=== PATIENT | male | born 1960 | race Caucasian/White ===

== ENCOUNTER 2023-12-08 16:22 | Outpatient (RCR) | payer OTHER, SELFPAY | END 2023-12-08 23:59 | disposition home or self-care (01) | LOC: RST 16:22 | PROVIDERS: ATTENDING PHYSICIAN Physical Medicine & Rehabilitation | DX: I69.320 Aphasia following cerebral infarction (principal); I69.390 Apraxia following cerebral infarction; I69.328 Other speech and language deficits following cerebral infarction; I69.398 Other sequelae of cerebral infarction; I67.9 Cerebrovascular disease, unspecified; R41.4 Neurologic neglect syndrome | CPT/HCPCS: 92507; 97110; 97112; 97116; 97530; 97535 ==

== ENCOUNTER 2024-01-12 14:06 | Outpatient (RCR) | payer OTHER, SELFPAY | END 2024-01-12 23:59 | disposition home or self-care (01) | LOC: RST 14:06 | PROVIDERS: ATTENDING PHYSICIAN Physical Medicine & Rehabilitation | DX: I69.320 Aphasia following cerebral infarction (principal); I69.390 Apraxia following cerebral infarction; I69.328 Other speech and language deficits following cerebral infarction; R41.4 Neurologic neglect syndrome; I69.398 Other sequelae of cerebral infarction; Z73.6 Limitation of activities due to disability | CPT/HCPCS: 92507; 97010; 97110; 97112; 97140; 97530; 97535 ==

== ENCOUNTER 2024-02-06 14:43 | Outpatient (RCR) | payer OTHER, SELFPAY | END 2024-02-06 23:59 | disposition home or self-care (01) | LOC: RST 14:43 | PROVIDERS: ATTENDING PHYSICIAN Physical Medicine & Rehabilitation | DX: I63.9 Cerebral infarction, unspecified (principal); I69.320 Aphasia following cerebral infarction; I69.390 Apraxia following cerebral infarction; I69.328 Other speech and language deficits following cerebral infarction | CPT/HCPCS: 92507; 97110; 97112; 97530; 97535 ==

== ENCOUNTER 2024-03-12 15:14 | Outpatient (RCR) | payer OTHER, SELFPAY | END 2024-03-12 23:59 | disposition home or self-care (01) | LOC: RST 15:14 | PROVIDERS: ATTENDING PHYSICIAN Physical Medicine & Rehabilitation | DX: I69.320 Aphasia following cerebral infarction (principal); I69.390 Apraxia following cerebral infarction; I69.328 Other speech and language deficits following cerebral infarction; Z73.6 Limitation of activities due to disability | CPT/HCPCS: 92507; 97110; 97112; 97530; 97535 ==

== ENCOUNTER 2024-04-11 15:50 | Outpatient (RCR) | payer OTHER, SELFPAY | END 2024-04-11 23:59 | disposition home or self-care (01) | LOC: RST 15:50 | PROVIDERS: ATTENDING PHYSICIAN Physical Medicine & Rehabilitation | DX: I63.512 Cerebral infarction due to unspecified occlusion or stenosis of left middle cerebral artery (principal); I69.328 Other speech and language deficits following cerebral infarction; I69.390 Apraxia following cerebral infarction; R41.4 Neurologic neglect syndrome; Z73.6 Limitation of activities due to disability | CPT/HCPCS: 92507; 97110; 97112; 97116; 97530; 97535 ==

== ENCOUNTER 2024-05-02 15:49 | Outpatient (RCR) | payer OTHER, SELFPAY | END 2024-05-02 23:59 | disposition home or self-care (01) | LOC: RST 15:49 | PROVIDERS: ATTENDING PHYSICIAN Physical Medicine & Rehabilitation | DX: I69.398 Other sequelae of cerebral infarction (principal); I69.320 Aphasia following cerebral infarction; I69.328 Other speech and language deficits following cerebral infarction; I69.351 Hemiplegia and hemiparesis following cerebral infarction affecting right dominant side; I69.319 Unspecified symptoms and signs involving cognitive functions following cerebral infarction; I69.390 Apraxia following cerebral infarction; Z73.6 Limitation of activities due to disability | CPT/HCPCS: 92507 ==

== ENCOUNTER 2024-06-01 16:53 | Emergency (ER) | payer OTHER, SELFPAY ==
[2024-06-01 17:00] VITALS: BP 162/95
[2024-06-01 17:24] LABS: % Basophils 0.7 % (0-2); % Eosinophils 1.7 % (0-6); % Immature Granulocytes 0.3 % (0-0.5); % Lymphocytes 17.9 % (20.5-51.1); % Monocytes 9.3 % (1.7-9.3); % Neutrophils 70.1 % (42.2-75.2); Absolute Basophils 0.1 10^3/uL (0-0.2); Absolute Eosinophils 0.1 10^3/uL (0-0.7); Absolute Lymphocytes 1.3 10^3/uL (1.2-3.4); Absolute Monocytes 0.7 10^3/uL (0.1-0.6); Mean Corp Hgb Conc. 35.9 g/dL (33.0-37.0); Mean Corpuscular Hgb 30.7 pg (27.0-31.0); Mean Corpuscular Volume 85.5 fL (80.0-94.0); Nucleated Red Blood Cells % 0 % (-); Platelet Count 289 10^3/uL (130-400); Red Blood Cell Count 4.56 10^6/uL (4.70-6.10); Red Cell Dist. Width 12.3 % (11.5-14.5); White Blood Cell Count 7.2 10^3/uL (4.8-10.8)
[2024-06-01 17:34] LABS: ALT (SGPT) 32 U/L (0-50); AST (SGOT) 33 U/L (17-59); Albumin 4.8 g/dl (3.5-5.0); Alkaline Phosphatase 77 U/L (38-126); Blood Urea Nitrogen 15 mg/dl (9-20); Carbon Dioxide 24 mmol/L (22-30); Chloride 105 mmol/L (98-107); Glucose 113 mg/dl (70-99); Potassium 4.3 mmol/L (3.5-5.1); Sodium 139 mmol/L (135-145); Total Bilirubin 0.4 mg/dl (0.2-1.3); Total Protein 7.3 g/dl (6.3-8.2); eGFR > 60.00
[2024-06-01 17:36] LABS: INR 2.23; PT 24.5 Sec (11.4-14.6)
[2024-06-01 17:37] LABS: APTT 34.3 Sec (23.4-35.0)
[2024-06-01 17:46] LABS: Troponin I < 0.012 ng/ml
--- NOTE | 2024-06-01 18:07 | ED.GENMED ---
History of Present Illness
General
Chief Complaint: Fatigue
Source: patient and spouse
Time Seen by Provider: 06/01/24 17:45
History of Present Illness
History of Present Illness:
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 Patient has been feeling fatigued over the past several weeks. His fatigue is
worse today. He also reports shortness of breath primarily with exertion. His is concerned because his INR has been subtherapeutic the past 2 lab draws. INR was reportedly 2 four days ago. He denies any new neurologic symptoms and states his
right sided weakness and speech difficulty is currently at baseline. He admits that he has not been sleeping well recently and wakes up every few hours throughout the night. He denies any fevers, chest pain, vomiting, or PND.
Past History
Past History
ED Past Medical History: HTN and Hypercholesterolemia
ED Past Surgical History: Cardiac and Orthopedic
Social History
Tobacco: Former smoker
Alcohol: Occasional
Living: with family
Family History
Family History: Negative Diabetes, Hypertension, Early CAD, Asthma or Cancer
Phy Exam
General Physical Exam
General Presentation: well appearing and no apparent distress
General age: appears stated age
General Skin: warm and dry
General Habitus: normal
General Mental: alert
Cardiovascular Exam
Cardiovascular Exam: regular rate/rhythm
Pulmonary Exam
Pulmonary Exam: lungs clear, no respiratory distress, no crackles and no wheezing
Neurological Exam
Neurological Exam: alert and other (4/5 strength on RUE/RLE. Negative drift x 4. Patient with mild aphasia/word finding difficulty which is baseline per patient and . CN 2-12 otherwise intact. Normal finger to nose and heel to [place] bilaterally. )
Skin Exam
Skin Exam: normal color and warm/dry
Psychiatric Exam
Psychiatric Exam: normal mood/affect
Course
Orders/Labs/Results
Orders:
Orders
06/01/24 17:03
Electrocardiogram (*1) Urgent
Reason for Study: Other
Other Reason for Exam: Possible Stroke
06/01/24 17:04
EKG- Treatment ONCE
06/01/24 17:16
Complete Blood Count/With Diff Urgent
Comprehensive Metabolic Panel Urgent
PTT Urgent
Prothrombin Time Urgent
TSH Reflex To Free T4 Urgent
Troponin I Urgent
06/01/24 18:05
CR Chest - 2 Views Urgent
Comment:
Reason For Exam: SOB
06/01/24 18:11
Add On- LAB Urgent
Tests Added?: TSH reflex to t4
06/01/24 18:16
COVID-19 Antigen Urgent
Source: Nasal Swab
06/01/24 18:27
Urinalysis Reflex To Culture Urgent
Date Specimen was Collected: 06/01/24
Time Specimen was Collected: 18:24
Abnormal Lab Results
06/01/24
17:16
RBC 4.56 L 10^6/uL
(4.70-6.10)
Absolute Monos (auto) 0.7 H 10^3/uL
(0.1-0.6)
Lymphocytes % 17.9 L %
(20.5-51.1)
PT 24.5 H Sec
(11.4-14.6)
Glucose 113 H mg/dl
(70-99)
06/01/24 17:16
06/01/24 17:16
Vital Signs
Initial and Last Documented VS:
Initial Vital Signs
Temp Pulse Resp BP Pulse Ox
98.3 F 77 16 162/95 98
06/01/24 17:00 06/01/24 17:00 06/01/24 17:00 06/01/24 17:00 06/01/24 17:00
Last Documented Vital Signs
Temp Pulse Resp BP Pulse Ox
98.3 F 77 16 136/90 98
06/01/24 17:00 06/01/24 17:00 06/01/24 17:00 06/01/24 19:52 06/01/24 17:00
MDM/Problems Addressed
Differential Diagnosis Includes:
64yoM here with fatigue x several weeks. Also having external dyspnea. Hx of prior CVA with residual R sided hemiparesis/aphasia. No new neurologic symptoms. He is afebrile and hemodynamically stable. He is well appearing in no distress. Exam is
reassuring other than his baseline neuro deficits. Differential diagnosis includes but is not limited to: infection, dehydration, CANDELARIA, thyroid dysfunction, arrhythmia
Initial ED plan: Check cardiac labs, INR, TSH, UA, COVID swab, EKG, and CXR.
*EKG
Interpreted by ED Provider?: Yes
EKG Intrepretation Date: 06/01/24
EKG Intrepretation Time: 18:19
Heart Rate: 72
Rate: normal
Rhythm: sinus
[place]: normal axis
Interval: normal interval
QRS Pattern: normal QRS
Ischemia: no ischemia
*Critical Care Note
Total Time (30-74mins, 75-104mins- exclusive of procedures): Not Applicable
Update Note
Update Note:
Labs overall unremarkable. INR 2.23. Blood counts, electrolytes, renal function, TSH normal. EKG shows NSR without ischemic changes and troponin is normal. UA bland without signs of infection. COVID negative and CXR is clear. Repeat vital signs
stable. No indication for admission. Advised close PCP f/u and ED return precautions discussed. He expressed understanding and is agreeable to plan. He was discharged in stable condition.
ED Attending Note
-
Portions of this chart may have been created with voice recognition software.� Occasional wrong word or��sound alike� substitutions may have occurred due to the inherent limitations of voice recognition software.
Discharge Plan
Departure
Patient Disposition: Home (Routine Discharge)
Date of Disposition: 06/01/24
Time of Disposition: 19:46
Patient with high blood pressure during this ER visit?: Yes
Discharge Problem:
Fatigue
Instructions: Fatigue (DC)
Prescriptions:
No Action
atorvastatin 80 mg Tablet
80 mg PO QPM Qty: 30 0RF
sennosides [Senna Lax] 8.6 mg Tablet
8.6 mg PO HS Qty: 30 0RF
sertraline 100 mg Tablet
100 mg PO Q12 Qty: 60 0RF
clopidogrel 75 mg Tablet
75 mg PO DAILY Qty: 30 0RF
warfarin [Jantoven] 4 mg Tablet
4 mg PO QPM Qty: 30 0RF
docusate sodium 100 mg Capsule
100 mg PO BIDPRN PRN (Reason: CONSTIPATION) Qty: 60 0RF
gabapentin 300 mg Capsule
300 mg PO BID Qty: 60 0RF
folic acid 1 mg Tablet
1 mg PO DAILY Qty: 90 0RF
diltiazem HCl 30 mg Tablet
30 mg PO Q8 Qty: 90 0RF
multivitamin with folic acid [Tab-A-Demond] 400 mcg Tablet
1 tab PO DAILY Qty: 100 0RF
Referrals:
PRIVATE,PHYSICIAN [Family Provider] -
Activity Restrictions/Additional Instructions:
Please follow-up with your family doctor on Tuesday. Return to the ER with any new or worsening symptoms.
Interventions
Interventions:
*Risk Screen - Suicide Last Done: 06/01/24 17:02
*General Assessment Last Done: 06/01/24 17:02
*Neglect/Abuse Screening Last Done: 06/01/24 17:02
ED- Fall Risk Assessment Last Done: 06/01/24 19:29
*ED COVID-19 Vaccine History Last Done: 06/01/24 19:29
*Nursing Disposition Last Done: 06/01/24 19:53
Discharge Date and Time
Discharge Date/Time: 06/01/24 19:53
Print Language: UZBEK
[2024-06-01 18:35] LABS: Urine Albumin Negative (Neg - Trace); Urine Bilirubin Negative (Negative); Urine Character Clear (Clear); Urine Color Yellow; Urine Glucose Negative (Negative); Urine Ketone Negative (Negative); Urine Leukocyte Negative (Negative); Urine Nitrite Negative (Negative); Urine Occult Blood Negative (Negative); Urine Urobilinogen Negative (Neg - 1+)
[2024-06-01 18:39] LABS: COVID-19 Antigen Negative (Negative)
[2024-06-01 19:34] LABS: TSH Reflex To Free T4 2.03 uIU/ml (0.47-4.68)
[2024-06-01 19:52] VITALS: BP 136/90
== END 2024-06-01 19:53 | disposition home or self-care (01) ==
LOC: EMR 16:53
PROVIDERS: Emergency Medicine; Physician Assistant; EMERGENCY PHYSICIAN Emergency Medicine
DX: R53.83 Other fatigue (principal); Z11.52 Encounter for screening for COVID-19; I10 Essential (primary) hypertension; Z87.891 Personal history of nicotine dependence; I69.351 Hemiplegia and hemiparesis following cerebral infarction affecting right dominant side
CPT/HCPCS: 99284; 71046; 80053; 81003; 84443; 84484; 85025; 85610; 85730; 87811; 93005

== ENCOUNTER 2024-06-06 13:54 | Outpatient (RCR) | payer OTHER, SELFPAY | END 2024-06-06 23:59 | disposition home or self-care (01) | LOC: RST 13:54 | PROVIDERS: ATTENDING PHYSICIAN Physical Medicine & Rehabilitation | DX: I69.320 Aphasia following cerebral infarction (principal); I69.398 Other sequelae of cerebral infarction (principal); I69.328 Other speech and language deficits following cerebral infarction; I69.351 Hemiplegia and hemiparesis following cerebral infarction affecting right dominant side; I69.319 Unspecified symptoms and signs involving cognitive functions following cerebral infarction; I69.390 Apraxia following cerebral infarction; Z73.6 Limitation of activities due to disability | CPT/HCPCS: 92507 ==

== ENCOUNTER 2024-07-04 11:07 | Outpatient (RCR) | payer OTHER, SELFPAY | END 2024-07-04 23:59 | disposition home or self-care (01) | LOC: RST 11:07 | PROVIDERS: ATTENDING PHYSICIAN Physical Medicine & Rehabilitation | DX: I69.398 Other sequelae of cerebral infarction (principal); I69.320 Aphasia following cerebral infarction (principal); I69.328 Other speech and language deficits following cerebral infarction; I69.351 Hemiplegia and hemiparesis following cerebral infarction affecting right dominant side; I69.319 Unspecified symptoms and signs involving cognitive functions following cerebral infarction; I69.390 Apraxia following cerebral infarction; Z73.6 Limitation of activities due to disability | CPT/HCPCS: 92507 ==

== ENCOUNTER 2024-08-01 15:10 | Outpatient (RCR) | payer OTHER, SELFPAY | END 2024-08-01 23:59 | disposition home or self-care (01) | LOC: RST 15:10 | PROVIDERS: ATTENDING PHYSICIAN Physical Medicine & Rehabilitation | DX: I69.398 Other sequelae of cerebral infarction (principal); I69.320 Aphasia following cerebral infarction; I69.328 Other speech and language deficits following cerebral infarction; I69.351 Hemiplegia and hemiparesis following cerebral infarction affecting right dominant side; I69.390 Apraxia following cerebral infarction; I69.319 Unspecified symptoms and signs involving cognitive functions following cerebral infarction; Z73.6 Limitation of activities due to disability | CPT/HCPCS: 92507 ==

== ENCOUNTER 2024-09-12 15:06 | Outpatient (RCR) | payer OTHER, SELFPAY | END 2024-09-12 23:59 | disposition home or self-care (01) | LOC: RST 15:06 | PROVIDERS: ATTENDING PHYSICIAN Physical Medicine & Rehabilitation; FAMILY PHYSICIAN Internal Medicine | DX: I69.398 Other sequelae of cerebral infarction (principal); I69.320 Aphasia following cerebral infarction; I69.328 Other speech and language deficits following cerebral infarction; I69.351 Hemiplegia and hemiparesis following cerebral infarction affecting right dominant side; I69.319 Unspecified symptoms and signs involving cognitive functions following cerebral infarction; I69.390 Apraxia following cerebral infarction; Z73.6 Limitation of activities due to disability | CPT/HCPCS: 92507 ==

== ENCOUNTER 2024-10-09 05:29 | Emergency (ER) | payer OTHER, SELFPAY ==
[2024-10-09 05:29] VITALS: BMI 30.3
[2024-10-09 05:32] VITALS: BP 163/86
[2024-10-09 07:00] VITALS: BP 134/88
--- NOTE | 2024-10-09 07:53 | ED.GENMED ---
History of Present Illness
General
Chief Complaint: Nose Bleed
Source: patient
Exam Limitations: none
Time Seen by Provider: 10/09/24 07:45
History of Present Illness
History of Present Illness:
64-year-old male on Coumadin presents with a right-sided nosebleed starting last evening. He has a history of a stroke causing aphasia. He also fell several days ago following a seizure. He states that at the time my exam his nose has stopped
bleeding. He denies nasal pain. No lightheadedness. No other complaints.
Past History
Past History
ED Past Medical History: HTN and Hypercholesterolemia
ED Past Surgical History: Cardiac and Orthopedic
Social History
Tobacco: Former smoker
Alcohol: Occasional
Living: with family
Family History
Family History: Negative Diabetes, Hypertension, Early CAD, Asthma or Cancer
Phy Exam
Physical Exam
Physical Exam:
General: Well-appearing male no acute respiratory distress HEENT: Normocephalic atraumatic dry mucosal membranes over the right side of the nose.
There is no active bleeding however the anterior medial aspect of the nose was bleeding with a clot over it currently. Posterior pharynx is patent heart: Regular rate and rhythm
Course
Orders/Labs/Results
Orders:
Orders
10/09/24 08:04
Prothrombin Time Urgent
10/09/24 08:12
Complete Blood Count/With Diff Urgent
Comprehensive Metabolic Panel Urgent
Abnormal Lab Results
10/09/24 10/09/24
08:04 08:12
RBC 4.54 L 10^6/uL
(4.70-6.10)
Absolute Monos (auto) 0.7 H 10^3/uL
(0.1-0.6)
Lymphocytes % 17.0 L %
(20.5-51.1)
PT 19.9 H Sec
(11.4-14.6)
Creatinine 0.6 L mg/dL
(0.7-1.3)
Glucose 107 H mg/dl
(70-99)
10/09/24 08:12
10/09/24 08:12
Vital Signs
Initial and Last Documented VS:
Initial Vital Signs
Temp Pulse Resp BP Pulse Ox
98 F 88 24 163/86 94
10/09/24 05:32 10/09/24 05:32 10/09/24 05:32 10/09/24 05:32 10/09/24 05:32
Last Documented Vital Signs
Temp Pulse Resp BP Pulse Ox
98 F 88 24 139/93 95
10/09/24 05:32 10/09/24 05:32 10/09/24 05:32 10/09/24 09:00 10/09/24 09:30
MDM/Problems Addressed
Differential Diagnosis Includes:
Acute right sided anterior epistaxis now resolved. He is on Coumadin. INR is pending
*Critical Care Note
Total Time (30-74mins, 75-104mins- exclusive of procedures): Not Applicable
Update Note
Update Note:
Patient reevaluated multiple times. No further bleeding from the right side of his nose. INR was taken and is 1.6. He has a mechanical valve recommend he follow-up with his clinic for this. No intervention necessary for his nose
ED Attending Note
-
Portions of this chart may have been created with voice recognition software.� Occasional wrong word or��sound alike� substitutions may have occurred due to the inherent limitations of voice recognition software.
Discharge Plan
Departure
Patient Disposition: Home (Routine Discharge)
Date of Disposition: 10/09/24
Time of Disposition: 10:05
Patient with high blood pressure during this ER visit?: No
Discharge Problem:
Anterior epistaxis
Instructions: Nosebleeds (DC)
Prescriptions:
No Action
atorvastatin 80 mg Tablet
80 mg PO QPM Qty: 30 0RF
sennosides [Senna Lax] 8.6 mg Tablet
8.6 mg PO HS Qty: 30 0RF
sertraline 100 mg Tablet
100 mg PO Q12 Qty: 60 0RF
clopidogrel 75 mg Tablet
75 mg PO DAILY Qty: 30 0RF
warfarin [Jantoven] 4 mg Tablet
4 mg PO QPM Qty: 30 0RF
docusate sodium 100 mg Capsule
100 mg PO BIDPRN PRN (Reason: CONSTIPATION) Qty: 60 0RF
gabapentin 300 mg Capsule
300 mg PO BID Qty: 60 0RF
folic acid 1 mg Tablet
1 mg PO DAILY Qty: 90 0RF
diltiazem HCl 30 mg Tablet
30 mg PO Q8 Qty: 90 0RF
multivitamin with folic acid [Tab-A-Demond] 400 mcg Tablet
1 tab PO DAILY Qty: 100 0RF
Referrals:
Luly Mueller MD [Family Provider] -
Carmelita Melendez MD [Active] -
Activity Restrictions/Additional Instructions:
Please return here for worsening symptoms. Apply direct pressure if your bleeding starts again. Follow-up with ENT if this becomes a persistent issue
Interventions
Interventions:
*Risk Screen - Suicide Last Done: 10/09/24 05:32
*General Assessment Last Done: 10/09/24 06:18
*Neglect/Abuse Screening Last Done: 10/09/24 05:32
*ED COVID-19 Vaccine History Last Done: 10/09/24 06:18
ED- Pulmonary Assessment Last Done: 10/09/24 06:19
ED- Neurological Assessment Last Done: 10/09/24 06:19
ED-EENT Assessment Last Done: 10/09/24 06:19
ED- Cardiac Assessment Last Done: 10/09/24 06:19
Discharge Date and Time
Print Language: SAMMARINESE
[2024-10-09 08:23] LABS: INR 1.67; PT 19.9 Sec (11.4-14.6)
[2024-10-09 08:25] LABS: % Basophils 0.7 % (0-2); % Eosinophils 2.4 % (0-6); % Immature Granulocytes 0.4 % (0-0.5); % Monocytes 8.8 % (1.7-9.3); % Neutrophils 70.7 % (42.2-75.2); Absolute Basophils 0.1 10^3/uL (0-0.2); Absolute Eosinophils 0.2 10^3/uL (0-0.7); Absolute Lymphocytes 1.3 10^3/uL (1.2-3.4); Absolute Monocytes 0.7 10^3/uL (0.1-0.6); Absolute Neutrophils 5.3 10^3/uL (1.4-6.5); Hematocrit 41.7 % (39.0-52.0); Hemoglobin 13.9 g/dL (13.0-18.0); Mean Corp Hgb Conc. 33.3 g/dL (33.0-37.0); Mean Corpuscular Hgb 30.6 pg (27.0-31.0); Mean Corpuscular Volume 91.9 fL (80.0-94.0); Mean Platelet Volume 9.8 fL (7.4-10.4); Nucleated Red Blood Cells % 0 % (-); Platelet Count 219 10^3/uL (130-400); Red Blood Cell Count 4.54 10^6/uL (4.70-6.10); Red Cell Dist. Width 12.6 % (11.5-14.5); White Blood Cell Count 7.5 10^3/uL (4.8-10.8)
[2024-10-09 08:34] LABS: ALT (SGPT) 26 U/L (0-50); AST (SGOT) 47 U/L (17-59); Albumin 4.1 g/dl (3.5-5.0); Alkaline Phosphatase 80 U/L (38-126); Blood Urea Nitrogen 11 mg/dl (9-20); Carbon Dioxide 29 mmol/L (22-30); Chloride 106 mmol/L (98-107); Estimated Creatinine Clearance > 125 ml/min; Glucose 107 mg/dl (70-99); Potassium 4.1 mmol/L (3.5-5.1); Sodium 144 mmol/L (135-145); Total Bilirubin 0.7 mg/dl (0.2-1.3); Total Protein 6.8 g/dl (6.3-8.2); eGFR > 60.00
[2024-10-09 09:00] VITALS: BP 139/93
[2024-10-09 10:00] VITALS: BP 148/100
[2024-10-09 10:13] VITALS: BP 143/100
== END 2024-10-09 10:20 | disposition home or self-care (01) ==
LOC: EMR 05:29
PROVIDERS: Physician Assistant; EMERGENCY PHYSICIAN Emergency Medicine; FAMILY PHYSICIAN Internal Medicine
DX: R04.0 Epistaxis (principal); I10 Essential (primary) hypertension; E78.00 Pure hypercholesterolemia, unspecified; Z79.01 Long term (current) use of anticoagulants; Z82.49 Family history of ischemic heart disease and other diseases of the circulatory system; Z86.73 Personal history of transient ischemic attack (TIA), and cerebral infarction without residual deficits; Z87.891 Personal history of nicotine dependence
CPT/HCPCS: 99283; 80053; 85025; 85610

== ENCOUNTER 2024-10-12 15:26 | Outpatient (RCR) | payer OTHER, SELFPAY | END 2024-10-12 23:59 | disposition home or self-care (01) | LOC: ROT 15:26 | PROVIDERS: ATTENDING PHYSICIAN Physical Medicine & Rehabilitation; FAMILY PHYSICIAN Internal Medicine | DX: I69.398 Other sequelae of cerebral infarction (principal); I69.320 Aphasia following cerebral infarction; I69.328 Other speech and language deficits following cerebral infarction; I69.319 Unspecified symptoms and signs involving cognitive functions following cerebral infarction; I69.351 Hemiplegia and hemiparesis following cerebral infarction affecting right dominant side; I69.318 Other symptoms and signs involving cognitive functions following cerebral infarction; I69.390 Apraxia following cerebral infarction; Z73.6 Limitation of activities due to disability | CPT/HCPCS: 92507 ==

== ENCOUNTER 2024-10-24 12:08 | Outpatient (RCR) | payer OTHER, SELFPAY | END 2024-10-24 23:59 | disposition home or self-care (01) | LOC: ROT 12:08 | PROVIDERS: ATTENDING PHYSICIAN Physical Medicine & Rehabilitation; FAMILY PHYSICIAN Internal Medicine | DX: I69.320 Aphasia following cerebral infarction (principal); I69.328 Other speech and language deficits following cerebral infarction; I69.390 Apraxia following cerebral infarction; Z73.6 Limitation of activities due to disability; I69.351 Hemiplegia and hemiparesis following cerebral infarction affecting right dominant side; I69.318 Other symptoms and signs involving cognitive functions following cerebral infarction; I69.398 Other sequelae of cerebral infarction; I69.319 Unspecified symptoms and signs involving cognitive functions following cerebral infarction | CPT/HCPCS: 92507 ==

== ENCOUNTER 2024-12-05 15:13 | Outpatient (RCR) | payer OTHER, SELFPAY | END 2024-12-05 23:59 | disposition home or self-care (01) | LOC: ROT 15:13 | PROVIDERS: ATTENDING PHYSICIAN Physical Medicine & Rehabilitation; FAMILY PHYSICIAN Internal Medicine | DX: I69.320 Aphasia following cerebral infarction (principal); I69.328 Other speech and language deficits following cerebral infarction; I69.390 Apraxia following cerebral infarction; Z73.6 Limitation of activities due to disability; I69.351 Hemiplegia and hemiparesis following cerebral infarction affecting right dominant side; I69.318 Other symptoms and signs involving cognitive functions following cerebral infarction; I69.398 Other sequelae of cerebral infarction; I69.319 Unspecified symptoms and signs involving cognitive functions following cerebral infarction | CPT/HCPCS: 92507 ==

== ENCOUNTER 2025-10-17 00:08 | Inpatient (IN) | payer OTHER, SELFPAY ==
[2025-10-16 21:47] VITALS: BP 169/110
--- NOTE | 2025-10-16 22:00 | ED.GENMED ---
History of Present Illness
<Dejon Whitfield PA-C - Last Filed: 10/17/25 00:35>
General
Chief Complaint: Chest Pain
Time Seen by Provider: 10/16/25 21:59
History of Present Illness
History of Present Illness:
65-year-old male with history of mitral valve replacement on warfarin, hypertension, hyperlipidemia, and left MCA stroke presents to the emergency department for evaluation of shortness of breath gradually worsening over the past 1 to 2 weeks
according to his spouse. He has baseline aphasia due to the prior stroke and thus history is somewhat limited. On arrival was noted to be tripoding with saturations in the mid to upper 80s. No known history of heart failure. He does continue to
vape and is a former cigarette smoker. He reports chest pain associated with a nonproductive cough, no fevers or chills
Past History
<Dejon Whitfield PA-C - Last Filed: 10/17/25 00:35>
Past History
ED Past Medical History: HTN and Hypercholesterolemia
ED Past Surgical History: Cardiac and Orthopedic
Social History
Tobacco: Former smoker
Alcohol: Occasional
Living: with family
Family History
Family History: Negative Diabetes, Hypertension, Early CAD, Asthma or Cancer
Review of Systems
<Dejon Whitfield PA-C - Last Filed: 10/17/25 00:35>
Review of Systems
Allergies reviewed?: Yes
All Other Systems: ROS reviewed and negative except as documented in HPI and ROS
Phy Exam
<Dejon Whitfield PA-C - Last Filed: 10/17/25 00:35>
Physical Exam
Physical Exam:
GEN: Ill-appearing, acute respiratory distress
HEENT: Oral mucosa moist, no scleral icterus, no JVD
Cardiac: Regular rate and rhythm
Lung: Respiratory distress with accessory muscle use, expiratory wheezes heard throughout all lung pina
MSK: No gross deformity or injuries, no lower extremity
Skin: Good color, no pallor or jaundice, no rashes
Neuro: AO x3, moves all extremities freely
Psych: Calm, cooperative
Scores
<Dejon Whitfield PA-C - Last Filed: 10/17/25 00:35>
Heart Score for Chest Pain Patients
STEMI patient?: Not applicable
Course
<Dejon Whitfield PA-C - Last Filed: 10/17/25 00:35>
Orders/Labs/Results
Orders:
Orders
10/16/25 21:39
Electrocardiogram (*1) Urgent
Reason for Study: Chest Pain
EKG- Treatment ONCE
10/16/25 21:51
Cardiac Monitoring- Treatment ONCE
IV Insert/Care/Rem.- Treatment PRN
CR Chest Portable - 1 View Urgent
Comment:
Reason For Exam: respiratory distress
Reason Study Needs to be Portable: Patient Unstable
O2 Therapy [RESP] Urgent
Titrate/Wean O2 to maintain O2 sat greater than (%): 93
Special Instructions: TO MAINTAIN CONTINUOUS O2 SATS >/= 93%
Pulse Ox/cont/shift [RESP] Urgent
Quantity: 1
Special Instructions: continuous pulse ox
10/16/25 22:00
Ipratropium/Albuterol Sulfate [Duoneb] 6 ml INH R NOW STA
10/16/25 22:05
Complete Blood Count/With Diff Urgent
Comprehensive Metabolic Panel Urgent
NT-proBNP Urgent
Prothrombin Time Urgent
Troponin I Urgent
Venous Blood Gas Urgent
%Oxygen/Room Air: 88
10/16/25 22:24
MethylPREDNISolone PF [Solu-Medrol Pf] 60 mg IV NOW STA
10/16/25 22:42
COVID-19 Antigen Urgent
Source: Nasal Swab
Influenza A+B Rapid Molecular Urgent
JALEEL Source: Nasal Swab
Specimen Description:
10/16/25 23:24
Ipratropium/Albuterol Sulfate [Duoneb] 3 ml INH R NOW STA
10/16/25 23:54
Admit/Transfer Patient As Directed
Co-Sign Provider:
Level of Care: Inpatient admission
Assign to:: Telemetry
Physician / Group: Bashir
Diagnosis: COPD exacerbation
Reason for Telemetry: Arrhythmia
Date to Stop Telemetry: 10/19/25
Time to Stop Telemetry: 11:00
Reason for Hospitalization: COPD exacerbation
Expected length of stay greater than two midnights?: Yes
ELOS- Estimated Length of Stay in days: 2
I certify the patient meets the requirements for IP care: Yes
PRN Pain Medication Management As Directed
May give lesser potent ordered pain med per pt: Yes
preference::
Protocol:: Medication orders for pain may be administered in a
manner that supports deferring to patient preference
when the pt is:
- Requesting an ordered lesser potent pain medication.
Least to most potent pain medications are defined
as: acetaminophen < NSAID < tramadol < opioids
(morphine, oxycodone, hydromorphone).
- Requesting a lesser dose of the same medication IF
ORDERED.
- Requesting a less intrusive route of administration
if both routes are prescribed by the provider (PO <
IV).
10/16/25 23:56
Code Status As Directed
Resuscitation Status: Full Code
10/19/25 11:00
DC Protocol for Telemetry ONCE
Abnormal Lab Results
10/16/25
22:05
RBC 4.36 L 10^6/uL
(4.70-6.10)
Hct 38.6 L %
(39.0-52.0)
Absolute Monos (auto) 0.8 H 10^3/uL
(0.1-0.6)
Monocytes % 10.0 H %
(1.7-9.3)
PT 27.1 H Sec
(11.4-14.6)
VBG pH 7.44 H
(7.32-7.43)
VBG pO2 210 H mmHg
(30-50)
VBG HCO3 29.2 H mmol/L
(22-27)
10/16/25 22:05
10/16/25 22:05
Vital Signs
Initial and Last Documented VS:
Initial Vital Signs
Temp Pulse Resp BP Pulse Ox
97 F 87 30 169/110 88
10/16/25 21:47 10/16/25 21:47 10/16/25 21:47 10/16/25 21:47 10/16/25 21:47
Last Documented Vital Signs
Temp Pulse Resp BP Pulse Ox
97.8 F 84 19 142/82 95
10/16/25 22:32 10/17/25 00:30 10/17/25 00:30 10/17/25 00:00 10/16/25 22:49
Thuylt;Arthur Jha, DO - Last Filed: 10/16/25 23:25>
Orders/Labs/Results
Orders:
Orders
10/16/25 21:39
Electrocardiogram (*1) Urgent
Reason for Study: Chest Pain
EKG- Treatment ONCE
10/16/25 21:51
Cardiac Monitoring- Treatment ONCE
IV Insert/Care/Rem.- Treatment PRN
CR Chest Portable - 1 View Urgent
Comment:
Reason For Exam: respiratory distress
Reason Study Needs to be Portable: Patient Unstable
O2 Therapy [RESP] Urgent
Titrate/Wean O2 to maintain O2 sat greater than (%): 93
Special Instructions: TO MAINTAIN CONTINUOUS O2 SATS >/= 93%
Pulse Ox/cont/shift [RESP] Urgent
Quantity: 1
Special Instructions: continuous pulse ox
10/16/25 22:00
Ipratropium/Albuterol Sulfate [Duoneb] 6 ml INH R NOW STA
10/16/25 22:05
Complete Blood Count/With Diff Urgent
Comprehensive Metabolic Panel Urgent
NT-proBNP Urgent
Prothrombin Time Urgent
Troponin I Urgent
Venous Blood Gas Urgent
%Oxygen/Room Air: 88
10/16/25 22:24
MethylPREDNISolone PF [Solu-Medrol Pf] 60 mg IV NOW STA
10/16/25 22:42
COVID-19 Antigen Urgent
Source: Nasal Swab
Influenza A+B Rapid Molecular Urgent
JALEEL Source: Nasal Swab
Specimen Description:
10/16/25 23:24
Ipratropium/Albuterol Sulfate [Duoneb] 3 ml INH R NOW STA
10/16/25 23:54
Admit/Transfer Patient As Directed
Co-Sign Provider:
Level of Care: Inpatient admission
Assign to:: Telemetry
Physician / Group: Bashir
Diagnosis: COPD exacerbation
Reason for Telemetry: Arrhythmia
Date to Stop Telemetry: 10/19/25
Time to Stop Telemetry: 11:00
Reason for Hospitalization: COPD exacerbation
Expected length of stay greater than two midnights?: Yes
ELOS- Estimated Length of Stay in days: 2
I certify the patient meets the requirements for IP care: Yes
PRN Pain Medication Management As Directed
May give lesser potent ordered pain med per pt: Yes
preference::
Protocol:: Medication orders for pain may be administered in a
manner that supports deferring to patient preference
when the pt is:
- Requesting an ordered lesser potent pain medication.
Least to most potent pain medications are defined
as: acetaminophen < NSAID < tramadol < opioids
(morphine, oxycodone, hydromorphone).
- Requesting a lesser dose of the same medication IF
ORDERED.
- Requesting a less intrusive route of administration
if both routes are prescribed by the provider (PO <
IV).
10/16/25 23:56
Code Status As Directed
Resuscitation Status: Full Code
10/19/25 11:00
DC Protocol for Telemetry ONCE
Abnormal Lab Results
10/16/25
22:05
RBC 4.36 L 10^6/uL
(4.70-6.10)
Hct 38.6 L %
(39.0-52.0)
Absolute Monos (auto) 0.8 H 10^3/uL
(0.1-0.6)
Monocytes % 10.0 H %
(1.7-9.3)
PT 27.1 H Sec
(11.4-14.6)
VBG pH 7.44 H
(7.32-7.43)
VBG pO2 210 H mmHg
(30-50)
VBG HCO3 29.2 H mmol/L
(22-27)
10/16/25 22:05
10/16/25 22:05
Vital Signs
Initial and Last Documented VS:
Initial Vital Signs
Temp Pulse Resp BP Pulse Ox
97 F 87 30 169/110 88
10/16/25 21:47 10/16/25 21:47 10/16/25 21:47 10/16/25 21:47 10/16/25 21:47
Last Documented Vital Signs
Temp Pulse Resp BP Pulse Ox
97.8 F 84 19 142/82 95
10/16/25 22:32 10/17/25 00:30 10/17/25 00:30 10/17/25 00:00 10/16/25 22:49
<Dejon Whitfield PA-C - Last Filed: 10/17/25 00:35>
MDM/Problems Addressed
MDM/Problems Addressed:
Workup is suspicious for acute undiagnosed COPD exacerbation, no clinical signs of hypervolemia/CHF. INR is therapeutic thus PE is not considered. Did improve with DuoNeb treatment in the ED. Will admit for further management given hypoxemia
<Dejon Whitfield PA-C - Last Filed: 10/17/25 00:35>
Comment
Comment:
EKG independently interpreted by me is somewhat limited due to patient motion artifact however shows normal sinus rhythm with no clear ischemic changes
*Pulse Oximetry
SaO2: 88
Oxygen Mode of Delivery: Room air
*Critical Care Note
Total Time (30-74mins, 75-104mins- exclusive of procedures): 32-minute
comment:
Critical care time: 32 minutes
Critical care time was exclusive of: Separately billable procedures, treating other patients, and teaching time
Critical care was necessary to treat or prevent imminent or life-threatening deterioration of the following conditions: Hypoxic respiratory failure
Critical care time spent personally by me on the following activities:
[x] Review of old charts
[x] Obtaining history from patient or surrogate
[x] Ordering and review of the laboratory studies
[x] Ordering and review of radiographic studies
[x] Ordering and performing treatments and interventions
[x] Patient patient's response to treatment
[x] Development of treatment plan with patient or surrogate
<Arthur Jha, DO - Last Filed: 10/16/25 23:25>
*Pulse Oximetry
Patient hypoxic: no
ED Attending Note
<Dejon Whitfield PA-C - Last Filed: 10/17/25 00:35>
-
Portions of this chart may have been created with voice recognition software.� Occasional wrong word or��sound alike� substitutions may have occurred due to the inherent limitations of voice recognition software.
<Arthur Jha, DO - Last Filed: 10/16/25 23:25>
ED Attending Note
Patient seen and examined by attending physician: Yes
ED Attending Note:
I reviewed and agree with history treatment plan by Timo Whitfield PA-C. My exam revealed 65-year-old male with expressive aphasia, diffuse honking wheezing throughout. Significant improvement after 2 DuoNebs and steroid. Patient oxygen dependent at
this time. Initially hypoxic at 88% on room air. Admit to hospitalist for further treatment. Of COPD exacerbation
Discharge Plan
Departure
Patient Disposition: Admit
Admit to: Med/Surg
Presentation/result/management discussed w/ accepting MD/DO: Hospitalist
Discharge Problem:
COPD with acute exacerbation
Interventions
Interventions:
*Risk Screen - Suicide Last Done: 10/16/25 21:47
*General Assessment Last Done: 10/16/25 22:45
*ED COVID-19 Vaccine History Last Done: 10/16/25 22:45
*ED Influenza Vaccine History Last Done: 10/16/25 22:45
[facility] Fall Risk Assessment Tool Last Done: 10/16/25 22:33
ED- Cardiac Assessment Last Done: 10/16/25 22:48
[2025-10-16] MEDS: DUONEB 6 ML INH (22:09)
[2025-10-16 22:15] LABS: Hematocrit 38.6 % (39.0-52.0); Hemoglobin 13.3 g/dL (13.0-18.0); Mean Corp Hgb Conc. 34.5 g/dL (33.0-37.0); Mean Corpuscular Volume 88.5 fL (80.0-94.0); Nucleated Red Blood Cells % 0 % (-); Platelet Count 244 10^3/uL (130-400); Red Cell Dist. Width 12.3 % (11.5-14.5); Venous Blood Gas B.E. 4.4 mmol/L (-4 to +4); Venous Blood Gas O2 Sat % 100.0 %
[2025-10-16 22:25] LABS: INR 2.57; PT 27.1 Sec (11.4-14.6)
[2025-10-16 22:27] VITALS: BP 140/92
[2025-10-16 22:28] VITALS: BMI 29.9
[2025-10-16] MEDS: SOLU-MEDROL PF 60 MG IV (22:36)
[2025-10-16 22:40] LABS: ALT (SGPT) 22 U/L (0-50); AST (SGOT) 30 U/L (17-59); Albumin 4.5 g/dl (3.5-5.0); Alkaline Phosphatase 97 U/L (38-126); Blood Urea Nitrogen 14 mg/dl (9-20); Calcium 9.7 mg/dl (8.4-10.2); Carbon Dioxide 28 mmol/L (22-30); Chloride 103 mmol/L (98-107); Estimated Creatinine Clearance 101 ml/min; Glucose 84 mg/dl (70-99); Potassium 3.9 mmol/L (3.5-5.1); Sodium 135 mmol/L (135-145); Total Protein 7.5 g/dl (6.3-8.2); eGFR > 60.00
[2025-10-16 22:51] LABS: Troponin I 0.026 ng/ml
[2025-10-16 23:00] VITALS: BP 133/86
[2025-10-16 23:06] LABS: COVID-19 Antigen Negative (Negative)
--- NOTE | 2025-10-16 23:57 | HPS.HSE ---
Family Physician
-
Family Physician: Luly Mueller MD
Chief Complaint
-
SOB, Cough
History of Present Illness
Patient is a 65y M with PMH significant for hypertension, anxiety / depression, mechanical heart valve and prior CVA who presents to ED complaining of cough and SOB. Patient states that he has had a hacking cough for about one month. It has
become progressively worse during that time. Over the past several days he has become increasingly short of breath. Today he was in the process of moving to a new home and he became markedly SOB. He arrived to the ED in respiratory distress. He
has received IV steroids, nebs and supplemental O2 and at the time of my examination he feels much improved - though not back to his usual baseline.
Patient takes no usual inhaled medications and denies any formal diagnosis of COPD.
He was an active smoker until about one year ago. He has since used a vape pen very frequently. He notes that he 'threw it out' on his way to the ED this evening.
Medical History
Past Medical History
Past Medical History: Reports Other
Additional Past Medical History:
CVA with Expressive Aphasia
Hypertension
Bacterial Endocarditis s/p Mechanical MVR
Anxiety / Depression
Past Surgical History: Reports Other
Additional Past Surgical History:
Mechanical MVR
M2 IAT / Stent
Right Knee Arthroscopy
Right Shoulder Surgery
Hernia Repair
Social History
Tobacco: Vaping (Cigarette smoker until one year ago. > 40 pack years. Vape pen daily / frequently since that time.)
Alcohol: Occasional
Drug: None
Personal:
Living: With Family
Family History
Family History: Not pertinent
Allergies / Home Medications
Allergies reflects when Allergies were last updated in [facility].
Home Medications with original date entered in [facility]
Allergy/Medication List:
Allergies
Allergy/AdvReac Type Severity Reaction Status Date / Time
No Known Allergies Allergy Verified 10/09/24 05:35
Home Medications
diltiazem HCl 30 mg tablet 30 mg PO Q8 Blood pressure #90 tabs 11/03/23
warfarin 4 mg tablet (Jantoven) 4 mg PO QPM Heart disease/condition #30 tabs 11/03/23
atorvastatin 80 mg tablet 80 mg PO Daily 10/16/25
bupropion HCl 100 mg tablet,12 hr sustained-release (Wellbutrin SR) 100 mg PO DAILY 10/16/25
sertraline 100 mg tablet 75 mg PO Q12 Depression 10/16/25
trazodone 100 mg tablet 100 mg PO HS PRN Insomnia 10/16/25
Review of Systems
-
History Source: Patient and Family
A 12 point ROS was completed and negative except as noted: Yes
Constitutional: Reports Fatigue; Denies Fever or Chills
EENT: Denies Sore Throat
Respiratory: Reports Cough and Trouble Breathing; Denies Hemoptysis
Cardiac: Denies Chest Pain, Diaphoresis or Palpitations
Abdomen/GI: Denies Abdominal Pain, Nausea, Vomiting or Diarrhea
: Denies Dysuria or Frequency
Musculoskeletal: Denies Joint Pain or Edema
Neurological: Reports Other (Aphasia); Denies Dizzy, Headache, Weakness or Numbness
Psych: Denies Depression or Anxiety
Physical Exam
Vital Signs
Vital Signs
Temp Pulse Resp BP Pulse Ox
97.8 F 86 16 140/92 95
10/16/25 22:32 10/16/25 22:32 10/16/25 22:32 10/16/25 22:27 10/16/25 22:49
Physical Exam
General: Other (65y M in no acute distress.)
HEENT: Moist mucous membranes and PERRLA
Respiratory: Other (Diffuse expiratory wheezes - more prominent in lower lung pina. No rales / rhonchi.)
Cardiac: S1/S2 (Mechanical S1) and Regular Rhythm; No Murmur
GI: Soft, Non Tender, Non Distended and Normal Bowel Sounds
Musculoskeletal: No Clubbing, No Cyanosis and No Edema
Neuro: AO x 3
Laboratory Results
-
10/16/25 22:
10/16/25:
Laboratory Results
PT 27.1 Sec (11.4-14.6) H 10/16/25:
INR 2.57 10/16/25 22:
Total Bilirubin 0.6 mg/dl (0.2-1.3) 10/16/25:
AST 30 U/L (17-59) 10/16/25:
ALT 22 U/L (0-50) 10/16/25:
Alkaline Phosphatase 97 U/L (38-126) 10/16/25:
Troponin I 0.026 ng/ml 10/16/25:
Impression/Plan
-
A/P: Patient is a 65y M with PMH significant for mechanical MVR s/p SBE and aphasia s/p prior CVA who presents to ED complaining of cough and SOB.
AE-COPD
- Admit for further evaluation and treatment.
- Improvement from initial arrival with nebs, steroids, etc.
- Continue IV steroids and taper to PO prior to discharge.
- Nebs ATC and PRN.
- Follow for continued clinical improvement.
- Encourage complete smoking cessation - including vape.
Benign Hypertension
- Stable. Continue diltiazem.
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
Mechanical MVR s/p Endocarditis
- Prior cardioembolic CVA s/p IAT and stent.
- No new focal neurologic deficits.
- Continue Coumadin. Follow INR and adjust dose as needed.
Anxiety / Depression
- Stable. Continue home med regimen.
DVT Prophylaxis: On Coumadin
Code Status: Full
[2025-10-17] VITALS (9 sets, daily range): BP systolic 132–162; BP diastolic 76–92; BMI 29.0
[2025-10-17] MEDS: DUONEB 3 ML INH ×5 (00:33→20:15)
[2025-10-17] MEDS: CARDIZEM 30 MG PO ×4 (02:17→23:34)
[2025-10-17] MEDS: COUMADIN 4 MG PO ×2 (02:17→18:12)
[2025-10-17] MEDS: DESYREL 100 MG PO ×2 (02:18→23:34)
--- NOTE | 2025-10-17 02:51 | PTCARENOTE ---
Patient arrived to unit around 02:00 via stretcher, Ambulated by self into room. AAOX3. Patien denies pain or dizziness but was SOB on arrival to unit. Pulse ox on room air 88%-90%. 02 @ liters reapplied with pulse ox increasing to 96% on 2 liters
02. Call valerio within reach. Oriented to unit.
[2025-10-17 08:06] LABS: INR 2.11; PT 23.3 Sec (11.4-14.6)
[2025-10-17 08:17] LABS: Hematocrit 39.1 % (39.0-52.0); Hemoglobin 13.5 g/dL (13.0-18.0); Mean Corp Hgb Conc. 34.5 g/dL (33.0-37.0); Mean Corpuscular Volume 89.3 fL (80.0-94.0); Platelet Count 237 10^3/uL (130-400); Red Cell Dist. Width 12.2 % (11.5-14.5)
[2025-10-17 08:31] LABS: Blood Urea Nitrogen 12 mg/dl (9-20); Calcium 9.4 mg/dl (8.4-10.2); Carbon Dioxide 28 mmol/L (22-30); Chloride 105 mmol/L (98-107); Estimated Creatinine Clearance 115 ml/min; Glucose 177 mg/dl (70-99); Potassium 4.2 mmol/L (3.5-5.1); Sodium 138 mmol/L (135-145); eGFR > 60.00
[2025-10-17] MEDS: WELLBUTRIN SR (12 hour sustained release) 100 MG PO (08:49)
[2025-10-17] MEDS: ZOLOFT 75 MG PO ×2 (08:50→20:03)
[2025-10-17] MEDS: LIPITOR 80 MG PO (08:50)
[2025-10-17] MEDS: DECADRON 4 MG IV ×2 (08:50→20:03)
--- NOTE | 2025-10-17 10:49 | CM ---
Patient seen at bedside
IA completed
Dx: copd exacerbation
PMH significant for hypertension, anxiety / depression, mechanical heart valve and prior CVA
Patient lives with his in a 1 story home, [address]
PLOF: Independent
Denies DME - on supplemental oxygen current, does not have home oxygen
Denies VN/stated [facility] in past
[employer] benefits
PCP: EDUAR Patterson
Pharmacy: [address], [place]
PLAN: home, watch for VN needs, CM to follow for discharge planning needs
--- NOTE | 2025-10-17 11:50 | W.PN.HOSP.TC ---
Today's Communication/Plan
-
Patient with IV steroids
Bronchodilators
Wean O2 as tolerated
Pulmonary eval
Trend INR daily
Assessment / Plan
Assessment / Plan
General: in NAD,
HEENT: Moist mucous membranes and PERRLA
Respiratory: exp wheezing, not tachypneic, on NC
Cardiac: S1/S2, +click and Regular Rhythm;
GI: Soft, Non Tender, Non Distended and Normal Bowel Sounds
Musculoskeletal: No Clubbing, No Cyanosis and No Edema
Neuro: AO x 3
Patient is a 65y M with PMH significant for mechanical MVR s/p SBE and aphasia s/p prior CVA who presents to ED complaining of cough and SOB.
Acute hypoxic respiratory insufficiency likely secondary to AE-COPD
Tobacco usage/vaping
- Continue IV steroids and taper regimen at discharge
- Nebs ATC and PRN.
- Follow for continued clinical improvement.
- Encourage complete smoking cessation - including vape.
- Wean o2 as tolerated
- With history of heavy tobacco use will probably need outpatient low-dose CT chest cancer screening. PFTs etc.
- Pulmonary eval
Benign Hypertension
- Stable. Continue diltiazem.
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
Mechanical MVR s/p Endocarditis
- Prior cardioembolic CVA s/p IAT and stent.
- No new focal neurologic deficits.
- Continue Coumadin. Follow INR and adjust dose as needed. Per pt, his INR GOAL is 2-3.
Anxiety / Depression
- Stable. Continue home med regimen.
DVT Prophylaxis: On Coumadin
Code Status: Full
Anticipated Discharge: > 48 hours
Subjective/Interval History
-
Date of Service: October 17, 2025
remains with sob
states of mild improvement
Objective Data
-
Labs:
Laboratory Results
10/17/25
06:48
WBC 6.1
Hgb 13.5
Hct 39.1
Plt Count 237
PT 23.3 H
INR 2.11
Sodium 138
Potassium 4.2
Chloride 105
Carbon Dioxide 28
BUN 12
Creatinine 0.7
Glucose 177 H
Calcium 9.4
Vital Signs:
Vital Signs
Temp Pulse Resp BP Pulse Ox
97.3 F 87 16 141/87 97
10/17/25 11:18 10/17/25 11:18 10/17/25 11:18 10/17/25 11:18 10/17/25 11:18
Data Reviewed
-
Total Time Spent with Patient (in minutes): 55
--- NOTE | 2025-10-17 17:00 | CON.PUL ---
Consultation
Consultation Request
Date/Time Consultation Requested: 10/17/2025
Date/Time Consultation Performed: 10/17/2025
Requesting Provider: Dr. Smith
Performing Provider: Dr. Rafa Jarrett
Reason for Consultation: Acute respiratory insufficiency-chronic cough
Medical History
-
History of Present Illness:
65-year-old male with past medical history significant for hypertension, anxiety/depression, mechanical heart valve due to endocarditis on Coumadin therapy, prior CVA who presented to the emergency room complaining of cough and shortness of breath.
Patient states the cough has been present for about a month. He does not recall being sick. Symptoms progressively got worse he has been using albuterol as needed.
He denies any previous diagnosis of lung disease but he is a former smoker. He vapes.
Symptoms worsen to the point that he developed progressive shortness of breath. Shortness of breath was significant to the point that was with minimal efforts. Came to the emergency room for evaluation.
He was found to be bronchospastic with significant cough paroxysms. He was started on steroids nebulizers and supplemental oxygen for mild hypoxemia.
Patient has no history of pulmonary disease. Not on daily inhalers.
Active smoker until a year ago.
Vaping until admission to the hospital.
Reports history of obstructive sleep apnea intolerant to CPAP.
Denies GERD or swallowing problems
Patient has expressive aphasia post CVA.
Past Medical History
Past Medical History: Other (See assessment and plan)
Social History
Tobacco: Vaping (Former cigarette smoking quit about a year ago. 50-nsbc-shnu history.)
Alcohol: Occasional
Drug: None
Personal:
Living: With Family
Family History
Family History: Reviewed & Not Pertinent
Allergies / Home Medications
Allergies
Allergy/AdvReac Type Severity Reaction Status Date / Time
No Known Allergies Allergy Verified 10/09/24 05:35
Home Medications
�Medication �Instructions �Recorded �Confirmed �Last Taken �Type
diltiazem HCl 30 mg tablet 30 mg PO Q8 Blood pressure #90 tabs 11/03/23 10/16/25 10/16/25 Rx
warfarin 4 mg tablet (Jantoven) 4 mg PO QPM Heart 11/03/23 10/16/25 10/15/25 Rx
disease/condition #30 tabs
atorvastatin 80 mg tablet 80 mg PO Daily High Cholesterol 10/16/25 10/16/25 10/16/25 History
bupropion HCl 100 mg tablet,12 hr 100 mg PO DAILY Mental 10/16/25 10/16/25 10/16/25 History
sustained-release (Wellbutrin SR) Health/Anxiety
sertraline 100 mg tablet 75 mg PO Q12 Depression 10/16/25 10/16/25 10/16/25 History
trazodone 100 mg tablet 100 mg PO HS PRN Insomnia 10/16/25 10/16/25 10/15/25 History
Review of Systems
-
History Source: Patient
All other systems: Negative unless noted
Vitals / Labs / Diagnostic Testing
Vital Signs
Temp Pulse Resp BP Pulse Ox
98.1 F 102 16 137/78 94
10/17/25 15:49 10/17/25 16:27 10/17/25 15:49 10/17/25 16:27 10/17/25 15:49
Lab Data
10/17/25 06:48
10/17/25 06:48
Laboratory Results
10/16/25 10/17/25
22:05 06:48
PT 27.1 H 23.3 H
INR 2.57 2.11
Microbiology
10/16/25 22:42 Nasal Swab Influenza Types A & B (MADELINE) - Final
Negative for Influenza A & B, NAAT
Negative results must be combined with clinical observations
and patient history.
Nucleic Acid Amplification test (NAAT)performed on the
[employer] platform.
Diagnostic Testing:
Physical Exam
-
HEENT: Normocephalic
Cardiovascular: S1/S2
Respiratory: Wheeze (Minimal expiratory) and Non-Labored Respirations
GI: Soft and Non Distended
Neurology: Awake, Alert, AO x 3 and No Motor Deficits
Skin: Warm
General: Comfortable
Assessment
-
65-year-old man with past medical history noted. Admitted with 1 month history of cough paroxysms, subsequently developed shortness of breath. Found to be hypoxemic and mildly hypoxemic in the emergency room. Admitted for further evaluation.
Consulted on 10/17/2025 for evaluation for
-
Cough/shortness of breath: Suspect asthmatic bronchitis-symptoms ongoing for about a month
Acute exacerbation of COPD cannot be ruled out
There is no PFT available
Chest x-ray without infiltrate --no significant hyperinflation.
Condition present prior admission:
Expressive aphasia status post CVA-status post M2 AAT/stent
Hypertension
Bacterial endocarditis status post mechanical mitral valve replacement post endocarditis
Anxiety/depression
Right knee arthroscopy
Right shoulder surgery
Hernia repair
Former smoker [id number] history quit a year ago
Vaping until admission
History of obstructive sleep apnea intolerant to CPAP per patient
-
Assessment and plan:
Clinical picture suggest asthmatic bronchitis-COPD exacerbation a possibility.
Will eventually obtain pulmonary function testing in the outpatient setting.
Patient quit vaping upon admission strongly encouraged to continue like that as can cause recurrence of symptoms
-
Cough paroxysms ongoing he has component of postnasal drip.
Lung exam with better air movement-minimal expiratory wheezing on exam
Patient feels slightly better shortness of breath has improved
Denies phlegm production.
No prior history of pulmonary disease including frequent bronchitis.
Agree with IV corticosteroids
Nebulizers gnniui-jzk-sukow for now
Start nasal saline spray
Start antihistamines
Continue antitussive
-
Recommend discharging on ICS/LABA until seen in our office to decide whether he will require long-term inhalers and evaluation for possible COPD.
-
Home oxygen assessment closer to discharge. Currently on low rate supplemental oxygen. Pulm
-
Does report history of obstructive sleep apnea intolerant to CPAP. This could be reevaluated in the outpatient setting as well.
-
Will continue to follow
[2025-10-17] MEDS: CLARITIN 10 MG PO (18:12)
[2025-10-17] MEDS: ROBITUSSIN DM 5 ML PO ×2 (20:03→22:27)
[2025-10-18 03:35] VITALS: BP 157/90
[2025-10-18 05:25] VITALS: BMI 28.4
[2025-10-18 07:00] VITALS: BP 127/79
[2025-10-18] MEDS: DUONEB 3 ML INH ×4 (08:01→19:34)
[2025-10-18 08:22] LABS: INR 2.56; PT 27.7 Sec (11.4-14.6)
[2025-10-18 08:48] LABS: Blood Urea Nitrogen 16 mg/dl (9-20); Calcium 9.5 mg/dl (8.4-10.2); Carbon Dioxide 29 mmol/L (22-30); Chloride 107 mmol/L (98-107); Estimated Creatinine Clearance 115 ml/min; Glucose 124 mg/dl (70-99); Potassium 4.4 mmol/L (3.5-5.1); Sodium 138 mmol/L (135-145); eGFR > 60.00
[2025-10-18] MEDS: DECADRON 4 MG IV ×2 (08:56→19:48)
[2025-10-18] MEDS: CLARITIN 10 MG PO (08:57)
[2025-10-18] MEDS: LIPITOR 80 MG PO (08:58)
[2025-10-18] MEDS: ZOLOFT 75 MG PO ×2 (08:58→19:48)
[2025-10-18] MEDS: WELLBUTRIN SR (12 hour sustained release) 100 MG PO (08:58)
[2025-10-18] MEDS: CARDIZEM 30 MG PO ×3 (08:59→23:26)
[2025-10-18 11:26] VITALS: BP 129/87
--- NOTE | 2025-10-18 12:23 | W.PN.HOSP.TC ---
Today's Communication/Plan
-
Wean O2 as tolerated
Continue with IV steroids
Bronchodilators
INR therapeutic.
Assessment / Plan
Assessment / Plan
General: in NAD,
HEENT: Moist mucous membranes and PERRLA
Respiratory: diffuse rhonci, NC 2L noted
Cardiac: S1/S2, +click and Regular Rhythm;
GI: Soft, Non Tender, Non Distended and Normal Bowel Sounds
Musculoskeletal: No Clubbing, No Cyanosis and No Edema
Neuro: AO x 3
Patient is a 65y M with PMH significant for mechanical MVR s/p SBE and aphasia s/p prior CVA who presents to ED complaining of cough and SOB.
Acute hypoxic respiratory insufficiency likely secondary to obstructive pulmonary disease asthma bronchitis versus COPD
Tobacco usage/vaping
- Continue IV steroids and taper regimen at discharge
- Nebs ATC and PRN.
- Follow for continued clinical improvement.
- Encourage complete smoking cessation - including vape.
- Wean o2 as tolerated -remains on 2L
- With history of heavy tobacco use will probably need outpatient low-dose CT chest cancer screening. PFTs etc.
- Pulmonary following
Benign Hypertension
- Stable. Continue diltiazem. 129/87
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
Mechanical MVR s/p Endocarditis
- Prior cardioembolic CVA s/p IAT and stent.
- No new focal neurologic deficits.
- Continue Coumadin. Follow INR and adjust dose as needed. Per pt, his INR GOAL is 2-3. INR therapeutic 2.5
Anxiety / Depression
- Stable. Continue home med regimen.
DVT Prophylaxis: On Coumadin
Code Status: Full
Anticipated Discharge: 24 - 48 hours
Subjective/Interval History
-
Date of Service: October 18, 2025
remains with cough and sob
Objective Data
-
Labs:
Laboratory Results
10/18/25
07:38
PT 27.7 H
INR 2.56
Sodium 138
Potassium 4.4
Chloride 107
Carbon Dioxide 29
BUN 16
Creatinine 0.7
Glucose 124 H
Calcium 9.5
Vital Signs:
Vital Signs
Temp Pulse Resp BP Pulse Ox
98.1 F 85 18 129/87 95
10/18/25 11:26 10/18/25 11:32 10/18/25 11:32 10/18/25 11:26 10/18/25 11:32
I&O
10/17/25 10/18/25 10/19/25
06:59 06:59 06:59
Intake Total 1640 / 1640
Balance 1640 / 1640
Data Reviewed
-
Total Time Spent with Patient (in minutes): 55
--- NOTE | 2025-10-18 13:30 | W.PN.PUL3 ---
Today's Communication / Plan
-
Continue DuoNebs
Continue IV dexamethasone with today and transition to prednisone tomorrow if clinically improved.
Home oxygen assessment tomorrow morning
Will discharge on ICS/LABA until seen in the office-presumptive possible emphysema given prior smoking.
He also has obstructive sleep apnea but intolerant to CPAP
Will follow
\\
Assessment
-
65-year-old man with past medical history noted. Admitted with 1 month history of cough paroxysms, subsequently developed shortness of breath. Found to be hypoxemic and mildly hypoxemic in the emergency room. Admitted for further evaluation.
Consulted on 10/17/2025 for evaluation for
-
Cough/shortness of breath: Suspect asthmatic bronchitis-symptoms ongoing for about a month
Acute exacerbation of COPD cannot be ruled out
There is no PFT available
Chest x-ray without infiltrate --no significant hyperinflation.
Condition present prior admission:
Expressive aphasia status post CVA-status post M2 AAT/stent
Hypertension
Bacterial endocarditis status post mechanical mitral valve replacement post endocarditis
Anxiety/depression
Right knee arthroscopy
Right shoulder surgery
Hernia repair
Former smoker [id number] history quit a year ago
Vaping until admission
History of obstructive sleep apnea intolerant to CPAP per patient
-
Assessment and plan:
Clinical picture suggest asthmatic bronchitis-COPD exacerbation a possibility.
Patient is states that he feels better 10/18/2025
Still with cough paroxysm with prolonged conversation
Lung exam 10/18/2025 relatively clear.
-
Will eventually obtain pulmonary function testing in the outpatient setting.
Patient quit vaping upon admission strongly encouraged to continue like that as can cause recurrence of symptoms
-
Cough paroxysms ongoing he has component of postnasal drip.
Exertional dyspnea improving.
Lung exam with better air movement-minimal expiratory wheezing on exam
Denies phlegm production.
No prior history of pulmonary disease including frequent bronchitis.
.-
Agree with IV corticosteroids-currently on dexamethasone 4 mg IV every 12, transition to prednisone in the next 24 hours 40 mg and decrease by 10 mg every 72 hours to off.
Nebulizers vohkzz-mrz-trosj for now
Continue nasal saline spray
Continue antihistamines-has some postnasal drip.
Continue antitussive
-
Recommend discharging on ICS/LABA until seen in our office to decide whether he will require long-term inhalers and evaluation for possible COPD.
-
Home oxygen assessment closer to discharge. Currently on low rate supplemental oxygen.
-
Does report history of obstructive sleep apnea intolerant to CPAP. This could be reevaluated in the outpatient setting as well.
-
Will continue to follow
Subjective Data
-
Date of Service:
Date of Service: October 18, 2025
Chief Complaint: Pulmonary Follow Up (Possible asthmatic bronchitis/? COPD)
Subjective:
Reports improvement in symptoms
Continues to have cough paroxysms
No significant phlegm production
Was able to ambulate to the rest with some shortness of breath.
Review of Systems
General: Fever (n)
Cardiopulmonary: Dyspnea, Cough, Sputum Production and Wheezing (improved)
Objective Data
Data Reviewed
Vital Signs / I&O / Oxygen:
Vital Signs
Temp Pulse Resp BP Pulse Ox
98.1 F 85 18 129/87 95
10/18/25 11:26 10/18/25 11:32 10/18/25 11:32 10/18/25 11:26 10/18/25 11:32
Intake and Output
10/17/25 10/18/25 10/19/25
06:59 06:59 06:59
Intake Total 1640 / 1640
Balance 1640 / 1640
SaO2 95
Nasal Cannula flow liters per 2
minute
Physical Exam
General: Comfortable
HEENT: Normocephalic
Cardiovascular: S1-S2
Respiratory: Clear
GI: Soft and Non Distended
Neurology: Awake, Alert, AO x 3, No Motor Deficits (n) and Other (Expressive aphasia)
Skin: Warm
Labs/Micro/Reports
Lab Data
10/17/25 06:48
10/18/25 07:38
Laboratory Results
10/18/25
07:38
PT 27.7 H
INR 2.56
Microbiology
10/16/25 22:42 Nasal Swab Influenza Types A & B (MADELINE) - Final
Negative for Influenza A & B, NAAT
Negative results must be combined with clinical observations
and patient history.
Nucleic Acid Amplification test (NAAT)performed on the
[employer] platform.
[2025-10-18 15:30] VITALS: BP 157/89
[2025-10-18] MEDS: COUMADIN 4 MG PO (16:47)
[2025-10-18 19:51] VITALS: BP 123/85
[2025-10-18] MEDS: TESSALON PERLES 200 MG PO (19:56)
[2025-10-18] MEDS: ROBITUSSIN DM 5 ML PO (23:25)
[2025-10-18] MEDS: DESYREL 100 MG PO (23:26)
[2025-10-18 23:30] VITALS: BP 124/79
[2025-10-19 03:35] VITALS: BP 116/76
[2025-10-19 06:00] VITALS: BMI 28.1
[2025-10-19 07:12] VITALS: BP 130/88
[2025-10-19] MEDS: DUONEB 3 ML INH ×4 (07:44→19:57)
[2025-10-19] MEDS: CLARITIN 10 MG PO (07:53)
[2025-10-19] MEDS: ZOLOFT 75 MG PO ×2 (07:53→20:01)
[2025-10-19] MEDS: WELLBUTRIN SR (12 hour sustained release) 100 MG PO (07:54)
[2025-10-19] MEDS: CARDIZEM 30 MG PO ×3 (07:54→23:06)
[2025-10-19] MEDS: LIPITOR 80 MG PO (07:54)
[2025-10-19] MEDS: DECADRON 4 MG IV ×2 (07:55→20:01)
[2025-10-19 08:59] LABS: INR 2.75; PT 29.3 Sec (11.4-14.6)
[2025-10-19 09:39] LABS: Blood Urea Nitrogen 20 mg/dl (9-20); Calcium 9.8 mg/dl (8.4-10.2); Carbon Dioxide 26 mmol/L (22-30); Chloride 105 mmol/L (98-107); Estimated Creatinine Clearance 115 ml/min; Glucose 108 mg/dl (70-99); Potassium 4.1 mmol/L (3.5-5.1); Sodium 140 mmol/L (135-145); eGFR > 60.00
[2025-10-19 11:08] VITALS: BP 127/85
--- NOTE | 2025-10-19 12:27 | W.PN.PUL3 ---
Today's Communication / Plan
-
Feeling improved but not yet back to baseline, currently on IV steroids
Can assess to transition to p.o. prednisone by tomorrow if feeling better
Encouraged out of bed and ambulation
Continue nebulizers as well for now, will eventually transition to inhalers as well
Outpatient follow-up recommended
Assessment
-
65-year-old man with past medical history noted. Admitted with 1 month history of cough paroxysms, subsequently developed shortness of breath. Found to be hypoxemic and mildly hypoxemic in the emergency room. Admitted for further evaluation.
Consulted on 10/17/2025 for evaluation for
-
Cough/shortness of breath: Suspect asthmatic bronchitis-symptoms ongoing for about a month
Acute exacerbation of COPD cannot be ruled out
There is no PFT available
Chest x-ray without infiltrate --no significant hyperinflation.
Condition present prior admission:
Expressive aphasia status post CVA-status post M2 AAT/stent
Hypertension
Bacterial endocarditis status post mechanical mitral valve replacement post endocarditis
Anxiety/depression
Right knee arthroscopy
Right shoulder surgery
Hernia repair
Former smoker [id number] history quit a year ago
Vaping until admission
History of obstructive sleep apnea intolerant to CPAP per patient
-
Plan:
Clinical picture suggest asthmatic bronchitis-COPD exacerbation a possibility.
Patient is states that he feels better 10/18/2025
Still with cough paroxysm with prolonged conversation
Lung exam 10/18/2025 relatively clear.
-
Will eventually obtain pulmonary function testing in the outpatient setting.
Patient quit vaping upon admission strongly encouraged to continue like that as can cause recurrence of symptoms
-
Cough paroxysms ongoing he has component of postnasal drip.
Exertional dyspnea improving.
Lung exam with better air movement-minimal expiratory wheezing on exam
Denies phlegm production.
No prior history of pulmonary disease including frequent bronchitis.
.-
Agree with IV corticosteroids-currently on dexamethasone 4 mg IV every 12, he does not feel quite back to baseline
Can transition to prednisone in the next 24 hours 40 mg and decrease by 10 mg every 72 hours to off.
Nebulizers kuevza-sat-vjyji for now
Continue nasal saline spray
Continue antihistamines-has some postnasal drip.
Continue antitussive
-
Recommend discharging on ICS/LABA until seen in our office to decide whether he will require long-term inhalers and evaluation for possible COPD.
-
Home oxygen assessment closer to discharge. Currently on low rate supplemental oxygen.
-
Does report history of obstructive sleep apnea intolerant to CPAP. This could be reevaluated in the outpatient setting as well.
-
Will continue to follow
Total time spent on this consultation/encounter __51__ minutes which includes review of history, physical exam, medications, laboratory data, personal review of imaging, extensive review of outpatient records, discussion with care team and
respiratory therapy.
Subjective Data
-
Date of Service:
Date of Service: October 19, 2025
Chief Complaint: Pulmonary Follow Up (Possible asthmatic bronchitis/? COPD)
Subjective:
Not feeling quite back to baseline
remains on IV steroids
Objective Data
Data Reviewed
Vital Signs / I&O / Oxygen:
Vital Signs
Temp Pulse Resp BP Pulse Ox
97.0 F 74 18 127/85 93
10/19/25 11:08 10/19/25 11:19 10/19/25 11:19 10/19/25 11:08 10/19/25 11:19
Intake and Output
10/18/25 10/19/25 10/20/25
06:59 06:59 06:59
Intake Total 1640 / 1640 1869 / 1869
Balance 1640 / 1640 1869 / 187
SaO2 93
Nasal Cannula flow liters per 2
minute
Physical Exam
General: Comfortable, Good Appetite and Other (No acute distress)
HEENT: Normocephalic and Anicteric
Cardiovascular: S1-S2 and Regular Rhythm
Respiratory: Clear and Non-Labored Respirations
GI: Soft, Non Distended and Non Tender
Neurology: Awake, Alert, AO x 3, No Motor Deficits (n) and Other (Expressive aphasia)
Skin: Warm, Dry and Good Color
Labs/Micro/Reports
Lab Data
10/17/25 06:48
10/19/25 08:20
Laboratory Results
10/19/25
08:20
PT 29.3 H
INR 2.75
Microbiology
10/16/25 22:42 Nasal Swab Influenza Types A & B (MADELINE) - Final
Negative for Influenza A & B, NAAT
Negative results must be combined with clinical observations
and patient history.
Nucleic Acid Amplification test (NAAT)performed on the
[employer] platform.
[2025-10-19] MEDS: ROBITUSSIN DM 5 ML PO (12:36)
--- NOTE | 2025-10-19 13:19 | W.PN.HOSP.TC ---
Today's Communication/Plan
-
Home O2 eval
po steroids taper on dc
ICS/Laba on dc
Assessment / Plan
Assessment / Plan
General: in NAD, sitting in chair
HEENT: Moist mucous membranes
Respiratory: improvement in aeration, mild rhonchi
Cardiac: S1/S2, +click and Regular Rhythm;
GI: Soft, Non Tender, Non Distended and Normal Bowel Sounds
Musculoskeletal: No Clubbing, No Cyanosis and No Edema
Neuro: AO x 3
Patient is a 65y M with PMH significant for mechanical MVR s/p SBE and aphasia s/p prior CVA who presents to ED complaining of cough and SOB.
Acute hypoxic respiratory insufficiency likely secondary to obstructive pulmonary disease asthma bronchitis versus COPD
Tobacco usage/vaping
- Continue IV steroids and taper regimen at discharge
- Nebs ATC and PRN. ICS/LABA on dc.
- Follow for continued clinical improvement.
- Encourage complete smoking cessation - including vape.
- off oxygen. now on room air. Home o2 eval
- With history of heavy tobacco use will probably need outpatient low-dose CT chest cancer screening. PFTs etc.
- Pulmonary following
Benign Hypertension
- Stable. Continue diltiazem. 127/85
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
Mechanical MVR s/p Endocarditis
- Prior cardioembolic CVA s/p IAT and stent.
- No new focal neurologic deficits.
- Continue Coumadin. Follow INR and adjust dose as needed. Per pt, his INR GOAL is 2-3. INR therapeutic 2.75
Anxiety / Depression
- Stable. Continue home med regimen.
DVT Prophylaxis: On Coumadin
Code Status: Full
Anticipated Discharge: Within 24 hours
Subjective/Interval History
-
Date of Service: October 19, 2025
weaned off oxygen
remains with cough
Objective Data
-
Labs:
Laboratory Results
10/19/25
08:20
PT 29.3 H
INR 2.75
Sodium 140
Potassium 4.1
Chloride 105
Carbon Dioxide 26
BUN 20
Creatinine 0.7
Glucose 108 H
Calcium 9.8
Vital Signs:
Vital Signs
Temp Pulse Resp BP Pulse Ox
97.0 F 74 18 127/85 93
10/19/25 11:08 10/19/25 11:19 10/19/25 11:19 10/19/25 11:08 10/19/25 11:19
I&O
10/18/25 10/19/25 10/20/25
06:59 06:59 06:59
Intake Total 1640 / 1640 1869
Balance 1640 / 1640 1869
Data Reviewed
-
Total Time Spent with Patient (in minutes): 55
[2025-10-19] MEDS: TESSALON PERLES 200 MG PO (15:01)
[2025-10-19 15:15] VITALS: BP 139/79
[2025-10-19] MEDS: COUMADIN 4 MG PO (16:56)
[2025-10-19 23:00] VITALS: BP 145/86
[2025-10-19] MEDS: DESYREL 100 MG PO (23:06)
[2025-10-20 07:03] VITALS: BP 130/86
[2025-10-20] MEDS: DUONEB 3 ML INH ×2 (07:11→10:57)
[2025-10-20] MEDS: CLARITIN 10 MG PO (08:25)
[2025-10-20] MEDS: ZOLOFT 75 MG PO (08:25)
[2025-10-20] MEDS: WELLBUTRIN SR (12 hour sustained release) 100 MG PO (08:26)
[2025-10-20] MEDS: LIPITOR 80 MG PO (08:26)
[2025-10-20] MEDS: CARDIZEM 30 MG PO (08:26)
[2025-10-20] MEDS: DECADRON 4 MG IV (08:27)
[2025-10-20 09:04] LABS: INR 3.20; PT 33.0 Sec (11.4-14.6)
[2025-10-20 09:10] LABS: Blood Urea Nitrogen 19 mg/dl (9-20); Calcium 9.6 mg/dl (8.4-10.2); Carbon Dioxide 25 mmol/L (22-30); Chloride 104 mmol/L (98-107); Estimated Creatinine Clearance 115 ml/min; Glucose 159 mg/dl (70-99); Potassium 4.1 mmol/L (3.5-5.1); Sodium 137 mmol/L (135-145); eGFR > 60.00
--- NOTE | 2025-10-20 10:17 | W.PN.HOSP.TC ---
Today's Communication/Plan
-
dc home today
ICS/Laba
steroids taper
Op pulm eval
Assessment / Plan
Assessment / Plan
General: in NAD, sitting in chair
HEENT: Moist mucous membranes
Respiratory: improvement in aeration, on room air
Cardiac: S1/S2, +click and Regular Rhythm;
GI: Soft, Non Tender, Non Distended and Normal Bowel Sounds
Musculoskeletal: No Clubbing, No Cyanosis and No Edema
Neuro: AO x 3
Patient is a 65y M with PMH significant for mechanical MVR s/p SBE and aphasia s/p prior CVA who presents to ED complaining of cough and SOB.
Acute hypoxic respiratory insufficiency likely secondary to obstructive pulmonary disease asthma bronchitis versus COPD
Tobacco usage/vaping
- Continue IV steroids and taper regimen at discharge
- Nebs ATC and PRN. ICS/LABA on dc.
- Follow for continued clinical improvement.
- Encourage complete smoking cessation - including vape.
- off oxygen. now on room air. Did not qualify for home oxygenation.
- With history of heavy tobacco use will probably need outpatient low-dose CT chest cancer screening. PFTs etc.
- Pulmonary following
Benign Hypertension
- Stable. Continue diltiazem. 130/86
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
Mechanical MVR s/p Endocarditis
- Prior cardioembolic CVA s/p IAT and stent.
- No new focal neurologic deficits.
- Consider holding Coumadin tonight follow INR and adjust dose as needed. Per pt, his INR GOAL is 2-3. INR mildly elevated 3.2
Anxiety / Depression
- Stable. Continue home med regimen.
DVT Prophylaxis: On Coumadin
Code Status: Full
More than 30 minutes spent in discharge including
Final examination of the patient
Summarizing hospital stay
Instructions for continuing care to all relevant caregivers
Preparation of discharge records, prescriptions, and referral forms
Total time spent (in minutes): 53
Anticipated Discharge: Today
Subjective/Interval History
-
Date of Service: October 20, 2025
Sitting in chair. Feeling better
Objective Data
-
Labs:
Laboratory Results
10/20/25
08:17
PT 33.0 H
INR 3.20
Sodium 137
Potassium 4.1
Chloride 104
Carbon Dioxide 25
BUN 19
Creatinine 0.7
Glucose 159 H
Calcium 9.6
Vital Signs:
Vital Signs
Temp Pulse Resp BP Pulse Ox
97.7 F 69 18 130/86 95
10/20/25 07:03 10/20/25 08:23 10/20/25 08:23 10/20/25 07:03 10/20/25 08:23
I&O
10/19/25 10/20/25 10/21/25
06:59 06:59 06:59
Intake Total 1869 1440 / 1440
Balance 1869 1440 / 1440
--- NOTE | 2025-10-20 10:19 | W.DCSUMMARY ---
Discharge Summary
Discharge Data
Date of Admission: 10/17/25
Date of Discharge: 10/20/25
-
Pending Results: No
Hospital Course
65y M with PMH significant for mechanical MVR s/p SBE and aphasia s/p prior CVA who presents to ED complaining of cough and SOB. Patient with history of severe tobacco abuse and vaping. CXR wtih Lungs: No convincing focal infiltrates. No
significant pleural effusions. No visualized pneumothorax. Clinical picture suggest asthmatic bronchitis-COPD exacerbation a possibility. Patient was started on IV steroids. Patient was at a nebulizer in the clinic. Patient required oxygenation
admission which was able to be weaned off on discharge. Patient did not qualify for home oxygenation. Patient was transition to p.o. prednisone taper on discharge. Patient was also started on ICS/LABA on discharge. Patient will require to
follow-up with pulmonology as outpatient for pulmonary function testing low-dose cancer screening with CT chest x-ray today.
Discharge Plan
-
Patient Disposition: Home (Routine Discharge)
Discharge Diagnosis/Procedures: Acute hypoxic respiratory insufficiency likely secondary to obstructive pulmonary disease asthma bronchitis versus COPD
Condition: Fair
Diet: Regular
Driving Restrictions: As prior to admission
Blood Work: Recommend INR check in 2 to 3 days via primary doctor
Activity Restrictions/Additional Instructions:
YOUR INR WAS 3.2 on 10/20/25
Instructions: Vaping
Referrals:
Rafa Cruz MD [Active, Pulmonary Medicine] - in two to three weeks
Referral Note: May see [facility].
Luly Mueller MD [Family Provider, Internal Medicine]
Prescriptions:
New
benzonatate 100 mg Capsule
200 mg PO TIDPRN PRN (Reason: severe cough) Qty: 21 0RF
loratadine 10 mg Tablet
10 mg PO DAILY Qty: 30 0RF
prednisone 10 mg Tablet
See Rx Instructions .ROUTE .COMPLEX Qty: 30 0RF
Rx Instructions:
Take By Mouth:
40 mg daily x3 days, 30 mg daily x3 days,
20 mg daily x3 days, 10 mg daily x3 days.
budesonide-formoterol [Symbicort] 160-4.5 mcg/actuation HFA aerosol inhaler
2 puff inhalation BID Qty: 10.2 0RF
Continued
atorvastatin 80 mg tablet
80 mg PO Daily
sertraline 100 mg tablet
75 mg PO Q12
bupropion HCl [Wellbutrin SR] 100 mg Tablet Sustained-Release 12 Hr
100 mg PO DAILY
trazodone 100 mg Tablet
100 mg PO HS PRN (Reason: Insomnia)
diltiazem HCl 30 mg Tablet
30 mg PO Q8 Qty: 90 0RF
Held
warfarin [Jantoven] 4 mg Tablet
4 mg PO QPM Qty: 30 0RF
Hold Instructions: Resume on 10/21/25.
Discharge Orders:
Discharge Patient (As Directed); Ordered 10/20/25
Ordered By: Prem Smith
Discharge Date and Time
Print Language: LATVIAN
[2025-10-20] MEDS: FLUZONE (6 mos+) 2025-2026 FORMULA 0.5 ML IM (11:08)
--- NOTE | 2025-10-20 13:39 | CM ---
Patient for discharge home with no needs. CM will follow for discharge planning needs.
Plan; home no needs
== END 2025-10-20 12:44 | disposition home or self-care (01) | DRG 192 ==
LOC: 4 WEST ACU 00:08
PROVIDERS: Emergency Medicine; Physician Assistant; ADMITTING PHYSICIAN Hospitalist; ATTENDING PHYSICIAN Hospitalist; CONSULT PHYSICIAN Internal Medicine Critical Care Medicine; EMERGENCY PHYSICIAN Emergency Medicine; FAMILY PHYSICIAN Internal Medicine
PROC: 3E02340 Introduction of Influenza Vaccine into Muscle, Percutaneous Approach (ICD-10-PCS; 2025-10-20)
DX: J44.1 Chronic obstructive pulmonary disease with (acute) exacerbation (principal); R09.02 Hypoxemia; I69.320 Aphasia following cerebral infarction; Z95.2 Presence of prosthetic heart valve; I10 Essential (primary) hypertension; F41.9 Anxiety disorder, unspecified; F32.A Depression, unspecified; F17.290 Nicotine dependence, other tobacco product, uncomplicated; Z79.01 Long term (current) use of anticoagulants; Z79.899 Other long term (current) drug therapy; Z99.81 Dependence on supplemental oxygen; G47.33 Obstructive sleep apnea (adult) (pediatric); Z11.52 Encounter for screening for COVID-19; Z23 Encounter for immunization
CPT/HCPCS: 71045; 80048; 80053; 82805; 83880; 84484; 85025; 85027; 85610; 87502; 87811; 90656; 93005; 94640; 99291; G0008